=== PATIENT | female | born 1985 | race Caucasian/White ===

== ENCOUNTER → 2018-05-02 09:07 | Outpatient (CLI) | payer OTHER, SELFPAY ==
--- NOTE | 2018-05-02 | DI.RAD.S_ITS ---
PROCEDURE: XR KNEE LT 3V INDICATIONS: LEFT KNEE PAIN TECHNIQUE: 3 views of the knee were acquired. COMPARISON: None. FINDINGS: Bones: No fractures or dislocations. No suspicious bony lesions. Soft tissues: No joint effusion. No suspicious soft tissue calcifications. IMPRESSION: No acute radiographic findings. If there is continued pain, followup exam or additional imaging such as MRI or CT could be performed for further assessment. Dictated by: Jaymie Lomeli M.D. on 05/02/2018 at 10:03 Approved by: Jaymie Lomeli M.D. on 05/02/2018 at 10:04
== END ==
PROVIDERS: PCP Nurse Practitioner Family; Visit Provider Nurse Practitioner Family
DX: M25.562 Pain in left knee (principal)
CPT/HCPCS: 73562

== ENCOUNTER → 2018-05-10 06:21 | Outpatient (CLI) | payer OTHER, SELFPAY ==
--- NOTE | 2018-05-10 | DI.MRI.S_ITS ---
PROCEDURE: MR KNEE LT WO CON INDICATIONS: Sprain of anterior cruciate ligament of left knee. Left knee pain, instability post skiing accident TECHNIQUE: Noncontrast sagittal PD fast spin echo and T2 fast spin echo with fat saturation, sagittal 3-D FLASH with fat saturation; coronal T1 spin echo and PD fast spin echo with fat saturation, and axial PD fast spin echo with fat saturation through the knee. COMPARISON: [facility], CR, XR KNEE LT 3V, 05/02/2018, 9:16. FINDINGS: Image quality: Excellent. Menisci: The medial and lateral menisci demonstrate normal morphology and internal signal. The meniscal root ligaments appear intact. Cruciate ligaments: There is a high-grade, complete or near-complete, sprain of the anterior cruciate ligament proximally with a few intact appearing fibers. There is associated periligamentous edema. The posterior cruciate ligament appears intact. Medial structures: The medial collateral ligament appears intact. The semimembranosus tendon insertions and meniscocapsular junction appear intact. Visualized portions of the pes anserinus tendons appear intact without associated bursal fluid collections. Lateral structures: The lateral collateral ligament, long and short heads of the biceps femoris tendon appear intact. The popliteus tendon appears intact. There is mild edema along the posterolateral aspect of the joint capsule consistent with a mild capsular sprain. Iliotibial band appears normal. Anterior structures: The quadriceps and patellar tendons appear intact. Patellar alignment is normal. No femoral trochlear dysplasia or ventral trochlear prominence. No edema in the infrapatellar fat pad. Bones and cartilage: There is bone marrow edema within the posterior aspect of the lateral tibial plateau consistent with a bone contusion. No discrete fracture identified. There is mild chondral fissuring in the patellofemoral compartment with associated small foci of subchondral edema along the patella. In the medial and lateral compartments, there is mild superficial chondral fraying. Joint space: There is a small joint effusion.. No Dias's cyst. Normal appearing synovial plicae are incidentally noted. IMPRESSION: 1. High grade, complete or near-complete, sprain of the ACL proximally with associated contusion in the posterior lateral tibial plateau. 2. Small joint effusion. 3. Mild chondral degeneration in the patellofemoral compartment. Dictated by: El Rainey M.D. on 05/10/2018 at 8:40 Approved by: El Rainey M.D. on 05/10/2018 at 8:49
== END ==
PROVIDERS: PCP Nurse Practitioner Family; Visit Provider Orthopaedic Surgery
DX: S83.512A Sprain of anterior cruciate ligament of left knee, initial encounter (principal); M25.462 Effusion, left knee
CPT/HCPCS: 73721

== ENCOUNTER → 2019-12-23 14:02 | Outpatient (CLI) | payer OTHER, SELFPAY ==
[2019-12-23 16:02] LABS: HCG Quantitative /Beta subunit 18072 mIU/mL
== END ==
PROVIDERS: Referring Provider Obstetrics & Gynecology; Visit Provider Obstetrics & Gynecology
DX: O20.9 Hemorrhage in early pregnancy, unspecified (principal)
CPT/HCPCS: 36415; 84702

== ENCOUNTER → 2019-12-24 10:14 | Outpatient (CLI) | payer OTHER, SELFPAY ==
[2019-12-24 12:01] LABS: HCG Quantitative /Beta subunit 19962 mIU/mL
== END ==
PROVIDERS: PCP Specialist; Referring Provider Obstetrics & Gynecology; Visit Provider Obstetrics & Gynecology
DX: O20.9 Hemorrhage in early pregnancy, unspecified (principal)
CPT/HCPCS: 36415; 84702

== ENCOUNTER → 2019-12-30 11:49 | Outpatient (CLI) | payer OTHER, SELFPAY ==
[2019-12-30 16:30] LABS: HCG Quantitative /Beta subunit 24059 mIU/mL
== END ==
PROVIDERS: PCP Specialist; Referring Provider Specialist; Visit Provider Specialist
DX: O20.9 Hemorrhage in early pregnancy, unspecified (principal)
CPT/HCPCS: 36415; 84702

== ENCOUNTER → 2020-05-05 08:13 | Outpatient (CLI) | payer OTHER, SELFPAY | PROVIDERS: Referring Provider Obstetrics & Gynecology; Visit Provider Obstetrics & Gynecology | DX: N91.2 Amenorrhea, unspecified (principal); Z87.59 Personal history of other complications of pregnancy, childbirth and the puerperium | CPT/HCPCS: 36415; 84702 ==

== ENCOUNTER → 2020-05-07 07:37 | Outpatient (CLI) | payer OTHER, SELFPAY ==
[2020-05-07 09:38] LABS: HCG Quantitative /Beta subunit 1607.3 mIU/mL
== END ==
PROVIDERS: Referring Provider Obstetrics & Gynecology; Visit Provider Obstetrics & Gynecology
DX: N91.2 Amenorrhea, unspecified (principal); Z87.59 Personal history of other complications of pregnancy, childbirth and the puerperium
CPT/HCPCS: 36415; 84702

== ENCOUNTER → 2020-08-30 09:17 | Outpatient (CLI) | payer OTHER, SELFPAY ==
--- NOTE | 2020-08-30 09:17 | DI.US.S_ITS ---
PROCEDURE: US OB >= 14 WEEKS FETUS INDICATIONS: 20 WEEK ANATOMICAL SURVEY OUTSIDE/PRIOR DATING DATA: Last menstrual period (LMP): 04/01/20 LMP-based estimated date of delivery ([facility]): 01/06/21 First dating scan (date and location): 08/30/20 Estimated date of delivery ([facility]) from first dating scan: 01/10/21 TECHNIQUE: Real-time scanning was performed of the fetus, with image documentation and biometric measurements. Endovaginal scanning: Not performed COMPARISON: None. FINDINGS: General: A single living intrauterine gestation is present. Presentation: Breech. Placenta: Placental position is anterior , without previa. Amniotic fluid index: 11.0 cm, normal range is 5-24 cm. heart rate: 147 beats per minute. Maternal cervical canal: 4.0 cm long. Normal lower limit is 2.5 cm. biometrics: Biparietal diameter: 4.9 cm, 20 weeks 5 days Head circumference: 18.2 cm, 20 weeks 4 days (8th percentile) Abdominal circumference: 16.3 cm, 21 weeks 3 days Femur length: 3.6 cm, 21 weeks 2 days Estimated gestational age from initial scan: not applicable. Composite gestational age from present scan: 21 weeks 0 days Estimated weight and percentile: 411 g, 29th percentile Measurement variability for biometric dating: +/- 7 days from 14 weeks to 15 weeks 6 days gestation, +/- 10 days from 16 weeks to 21 weeks 6 days gestation, +/- 2 weeks from 22 weeks to 27 weeks 6 days gestation, +/- 3 weeks for 28 weeks gestation or later. weight reference: 4500 g or EFW >90/95% is considered macrosomia or large for gestational age. EFW <10% is small for gestational age. EFW 5% or less is considered intra-uterine growth restriction. Anatomic survey: Neuro: Ventricles are non-dilated at less than 10 mm. Cisterna magna is normal at 3-11 mm. Cerebellum is normal in size and morphology. Nuchal skin fold: Normal at less than 6 mm between 14-21 weeks gestational age. Face: Nose and lips, facial profile are normal. Spine: No evidence for spina bifida. Heart: 4-chambered heart is present, with normal ventricular outflow tracts. Diaphragm: Diaphragm is intact. Stomach: Left-sided stomach is present. Kidneys: No hydronephrosis. Normal is less than 5 mm in 2nd trimester, less than 7 mm in 3rd trimester. Cord: 3-vessel cord has orthotopic insertion. Bladder: Normal in size. Extremities: All 4 extremities identified. IMPRESSION: Single living intrauterine fetus in breech presentation. Expected interval growth Normal anatomic survey Dictated by: Jadon Rowley M.D. on 08/30/2020 at 13:03 Approved by: Jadon Rowley M.D. on 08/30/2020 at 13:07
== END ==
PROVIDERS: Referring Provider Nurse Practitioner Obstetrics & Gynecology; Visit Provider Nurse Practitioner Obstetrics & Gynecology
DX: Z34.92 Encounter for supervision of normal pregnancy, unspecified, second trimester (principal); Z3A.21 21 weeks gestation of pregnancy
CPT/HCPCS: 76811

== ENCOUNTER → 2020-12-11 12:00 | Outpatient (ROUT) | payer OTHER, SELFPAY ==
[2020-12-12 10:19] LABS: Strep Grp B PCR NEG for Grp B Strep
== END ==
PROVIDERS: Visit Provider Nurse Practitioner Obstetrics & Gynecology
DX: Z34.90 Encounter for supervision of normal pregnancy, unspecified, unspecified trimester (principal); Z36.85 Encounter for antenatal screening for Streptococcus B; Z3A.36 36 weeks gestation of pregnancy
CPT/HCPCS: 87653

== ENCOUNTER 2021-01-13 04:20 | Inpatient (IN) | payer OTHER, SELFPAY ==
--- NOTE | 2021-01-13 04:33 | P.HPOB_ITS ---
OB HPI Date/Time Date of admission: 01/13/21 Date Patient Seen: 01/13/21 Time Patient Seen: 04:33 History of Present Condition Chief complaint: MATERNITY : 2 Para: 0 Estimated Date of Delivery: 01/06/21 Estimated Gestational Age (weeks): 41 Narrative: Haydee Fuentes is a 35 year old female @ 41wks by LMP and early US. Contractions started last night, slowly progressing in frequency and intensity. Just started breathing through contractions regularly. Lots of FM and small amounts of bloody show. No LOF. Uncomplicated PN care w/ CNM. , Deep, is present and supportive. Desires low intervention . Scheduled for 41wk IOL today and happy to be laboring spontaneously. History of Present care: good care, initiated at week # (9), number of visits (12) and pounds weight gain (29) Dating criteria: LMP confirmed by 1st trimester US Ultrasounds: normal mid trimester US Obstetrical complications: none Medical complications: none Preadmission Labs Blood type: A (+) positive -: Antibody screen: negative, GBS status: negative, HBsAG: negative, HIV: negative and RPR/VDLR: negative -: Chlamydia screen: not detected and Gonorrhea screen: not detected -: Rubella: immune HCT: 32.8 HCAB: negative Cell-free DNA: negative, male 1 hr GTT: 107 Prior (ies) History: 01/01/20: SAB @ 7wks Evaluation Evaluation Baseline heart rate: 140 Variability: Moderate (11-25) monitor accelerations: Present Monitor Decelerations: Absent Contraction Frequency (minutes): 2 Uterine Contraction Intensity: Moderate Status: Category l Cervical dilation (cm): 4 Cervical effacement (%): 90 station: -3 [facility] Medical History Abnormal Pap smear of cervix Chicken pox (~1990) Human papilloma virus (~2010) Surgical History Anesthesia H/O LEEP (~2010) History of left knee surgery (~07/18/18) History of tonsillectomy (~2008) Family History Grandmother Leukemia Grandfather Alzheimer's disease Social History Smoking Status: Never smoker Meds Home Medications and Allergies Home Medications Medication Instructions Recorded Confirmed Type prenat.vits,yuri,[id number] 1 tab PO DAILY 01/01/20 01/13/21 History Allergies Allergy/AdvReac Type Severity Reaction Status Date / Time No Known Drug Allergies Allergy Verified 01/13/21 05:08 Review of Systems Review of Systems ROS: Yes unobtainable due to mental condition Exam Vital Signs (past 8 hours): BP 111/74mmHg, HR 81bpm, T 36.6C Temporal Resp Auscultation: clear to auscultation bilaterally Cardio Rate: regular rate Rhythm: regular rhythm Heart Sounds: S1 normal and S2 normal Presentation: vertex Objective Labs Result Diagrams: 01/13/21 07:25 Assessment and Plan Assessment and Plan Assessment and Plan narrative: A: Term nullipara Approaching active labor Mild anemia No inidcation for GBS prophylaxis Cat I FHR P: Admit, routine orders. May switch to IA after 20 minutes of Cat I FHR. Labor support, PRN. Reassess in 4 hours or sooner, PRN.
[2021-01-13 04:54] VITALS: BP 114/72
[2021-01-13 05:40] LABS: COVID19 - ADMIT (NP swab/PCR) Negative (Negative)
[2021-01-13] MEDS: CALCIUM CARBONATE 500 MG TAB 1000 MG PO (06:22)
[2021-01-13 07:37] LABS: Add Manual Diff / Slide Review NO; Basophils Absolute Auto 0 /uL (0-100); Basophils Percent Auto 0.2 % (0-2); Eosinophils Absolute Auto 0 /uL (0-450); Eosinophils Percent Auto 0.2 % (2-4); Hematocrit 40.2 % (36-46); Hemoglobin 13.7 g/dL (12.0-16.0); Lymphocytes Absolute Auto 800 /uL (1100-4500); Lymphocytes Percent Auto 4.5 % (25-40); Mean Corpuscular HGB Conc 34.1 % (30-36); Mean Corpuscular Hemoglobin 31.2 PG (26-34); Mean Corpuscular Volume 91.7 fL (80-100); Monocytes Absolute Auto 800 /uL (0-900); Monocytes Percent Auto 4.6 % (3-14); Neutrophils Absolute Auto 16000 /uL (1500-7000); Neutrophils Percent Auto 90.5 % (50-75); Platelet Count 146 X10^3/uL (150-400); Red Blood Cell Count 4.39 X10^6/uL (4.0-5.2); Red Cell Distribution Width 13.1 % (11.6-14.8); White Blood Cell Count 17.7 X10^3/uL (4.5-11.0)
[2021-01-13] MEDS: LACTATED RINGERS 1,000 ML 100 ML IV ×2 (09:45→10:45)
--- NOTE | 2021-01-13 11:29 | P.PCN_ITS ---
Regional Block Pre-procedure Procedure: Continuous Lumbar Epidural for L&D Attending OB provider: Araseli Gilliam PMH/ROS narrative: term labor, no complications ASA Class: II Labs: Hct 40.2 % (36-46) 01/13/21 07:25 Plt Count 146 X10^3/uL (150-400) L 01/13/21 07:25 Medications: Current Medications Generic Name Dose Route Start Last Admin Trade Name Freq PRN Reason Stop Dose Admin Calcium Carbonate 1,000 mg 01/13/21 04:31 01/13/21 06:22 Calcium Carbonate 500 Mg Tab PO 1,000 mg Q2HR PRN Administration Dyspepsia Carboprost Tromethamine 250 mcg 01/13/21 04:31 Carboprost 250 Mcg/Ml Ampul IM Q90M PRN Bleeding Diphenhydramine HCl 25 mg 01/13/21 09:58 Diphenhydramine 50 Mg/Ml Vial IV Q10M PRN Pruritis Fentanyl 100 mcg 01/13/21 04:31 Fentanyl 100 Mcg/2 Ml Inj IV Q1H PRN Pain, Severe (7-10) Lactated Ringer's 1,000 mls @ 100 mls/hr 01/13/21 04:45 01/13/21 10:45 Lactated Ringers IV 100 mls/hr CONT AWA Administration Oxytocin/Lactated Ringer's 30 unit in 500 mls @ 200 mls/hr 01/13/21 04:31 Oxytocin Premix IV CONT PRN Bleeding Protocol Tranexamic Acid 1,000 mg/ 100 mls @ 200 mls/hr 01/13/21 04:31 Sodium Chloride IV NOW PRN Bleeding FENT 2MCG/ML BUPIV 0.125% EPI 200 mcg in 100 mls @ 6 mls/hr 01/13/21 10:00 Fentanyl/Bupiv/Ns 2mcg/Ml - 0.125% EPIDURAL CONT AWA Methylergonovine Maleate 0.2 mg 01/13/21 04:31 Methylergonovine 0.2 Mg Tablet PO Q6HR PRN Heavy Bleeding Methylergonovine Maleate 0.2 mg 01/13/21 04:31 Methylergonovine 0.2 Mg/Ml Vial IM NOW PRN Bleeding Misoprostol 800 mcg 01/13/21 04:31 Misoprostol 200 Mcg Tablet NE NOW PRN Bleeding Misoprostol 1,000 mcg 01/13/21 04:31 Misoprostol 200 Mcg Tablet NE NOW PRN Bleeding Misoprostol 400 mcg 01/13/21 04:31 Misoprostol 200 Mcg Tablet SL NOW PRN Bleeding Nalbuphine HCl 2.5 mg 01/13/21 09:58 Nalbuphine 20 Mg/Ml Ampul IV Q10M PRN Pruritis Ondansetron HCl 4 mg 01/13/21 04:31 Ondansetron 4 Mg/2 Ml Inj IV Q4HR PRN Nausea And Vomiting Oxytocin 10 unit 01/13/21 04:31 Oxytocin 10 Unit/Ml Vial IM NOW PRN Bleeding Allergies: Allergies Allergy/AdvReac Type Severity Reaction Status Date / Time No Known Drug Allergies Allergy Verified 01/13/21 05:08 Procedure Insertion date: 01/13/21 Insertion time: 11:05 Prep/Local: betadine x3 and 1% lidocaine Interspace: L2-3 Needle: 18 gauge Digital [place] (CSE: 27g Pencan through [place], clear CSF, 1mL 0.25% bupiv) Loss of resistance with: saline SHWETHA at (cm): 4 Catheter placed at SKIN (cm): 9 Catheter in SPACE (cm): 5 Insertion: No CSF, No Blood, No Paresthesia with insertion, No Paresthesia with injection and No Test dose reaction Initial Medications TEST DOSE time: 11:07 TEST DOSE: 1.5% lidocaine with epinephrine 1:200k (mL): 3 BOLUS DOSE time: 11:18 BOLUS DOSE (mL): 3 BOLUS DOSE med: other (infusate) Infusion INFUSION: 0.125% bupivacaine and with fentanyl 2 mcg/mL Initial rate (mL/hr): 8 Subsequent interventions: 15:10 5mg ephedrine IV, mildly depressed BP with decreased variability and maternal nausea 17:00 RL quadrant window, clinician bolus (0.125% bupiv with fentanyl 2mcg/mL) of 6mL Post-procedure Anesthesia time START: 10:50 Anesthesia time END: 21:10 Post-procedure Anesthesia Assessment: Yes CV function: HR/BP stable, Yes Resp function: RR/sat/airway adequate, Yes Mental status appropriate and No Anesthesia complications
--- NOTE | 2021-01-13 11:32 | PM.OBPNLAB ---
Date/Time Date Patient Seen: 01/13/21 Time Patient Seen: 11:32 Pain Control Pain control: epidural Comments: Abdoul labored well, changing positions frequently. While laboring in the tub, Abdoul made the decision to receive an epidural. Epidural now in place with complete pain relief. VS: BP 99/68mmHg, HR 93bpm, T 36.7C Temporal. Pelvic Exam Dilation (cm): 6 Effacement (%): 100 station: -2 Amniotic membrane status: Leaking (clear) Contractions Monitor mode: External Pitocin rate (mU/min): 0 Contraction frequency (min): 3 Contraction duration (min): 1 Contraction pattern: Irregular Contraction phase: Resting Contraction intensity: Moderate Status status: Category ll Heart Rate Baseline: 135 Monitor Accelerations: Absent Monitor Decelerations: Variable Monitor Variability: Moderate Comments: single late deceleration Assessment and Plan Assessment: active labor Plan: continuous present management Comments: reassess in 4hours or sooner, PRN
--- NOTE | 2021-01-13 13:12 | PM.OBPNLAB ---
Date/Time Date Patient Seen: 01/13/21 Time Patient Seen: 13:10 Pain Control Pain control: epidural Comments: Abdoul is resting in bed with epidural providing good pain relief during contractions. Feeling a little pressure with some but no pain. Supportive partner remains at bedside. BP: 99/58 mmHg, HR: 69bpm, RR 16/min, T 36.7C Temporal Pelvic Exam Dilation (cm): 7 Effacement (%): 100 station: -2 Amniotic membrane status: Leaking (clear) Comments: SVE per RN due to FHR decelerations, BBOW/forebag palpated Contractions Monitor mode: External Contraction frequency (min): 4 Contraction pattern: Irregular Contraction phase: Resting Contraction intensity: Moderate Status status: Category ll Heart Rate Baseline: 145 Monitor Accelerations: Present Monitor Decelerations: Late Monitor Variability: Moderate Comments: Recurrent late decelerations noted by RN on EFM. Resolved after several position changes and fluid bolus. Variability remains moderate and accelerations present. Abdoul is currently resting on left side, no decelerations noted at this time. Assessment and Plan Assessment: active labor Plan: continuous present management Comments: Will consider AROM of forebag if contractions continue to space and decelerations do not continue. Reassess in 2 hrs or sooner PRN.
--- NOTE | 2021-01-13 14:30 | PM.OBPNLAB ---
Date/Time Date Patient Seen: 01/13/21 Time Patient Seen: 14:31 Pain Control Pain control: epidural Comments: Pt had nause and vomiting w/ FHR deceleration despite low Nguyen's position and IVFB. Was treated with ephedrine 5mg by for symptomatic hypotension. Epidural continuous dose was also decrease and patient remains comfortable. VS: BP 106/68mmHg, HHR 88bpm, T 37.0C Temporal Pelvic Exam Dilation (cm): 7 Effacement (%): 100 station: -2 Amniotic membrane status: Leaking (clear) Comments: AROM forebag for copious clear fluid OP Position noted Contractions Monitor mode: External Pitocin rate (mU/min): 0 Contraction frequency (min): 4 Contraction duration (min): 1 Contraction pattern: Irregular Contraction phase: Resting Contraction intensity: Moderate Status status: Category ll Heart Rate Baseline: 138 Monitor Accelerations: Absent Monitor Decelerations: Early Monitor Variability: Minimal Assessment and Plan Assessment: active labor Plan: continuous present management and begin patient augmentation Comments: Encourage position changes w/ peanut ball. Will consider pitocin augmentation if no change at next check. Reassess in 2hours or sooner, PRN.
[2021-01-13] MEDS: OXYTOCIN PREMIX 30 UNIT/500 ML PLAST..BAG IV (16:35)
--- NOTE | 2021-01-13 16:42 | PM.OBPNLAB ---
Date/Time Date Patient Seen: 01/13/21 Time Patient Seen: 16:42 Pain Control Pain control: epidural Comments: Has had 2 emesis episodes over the last 2 hours with a prolonged deceleration with each. FHR and nausea resolve quickly. Otherwise, laboring comfortably with an epidural and now agreeable to pitocin augmentation. VS: BP 111/72mmHg, HR 87bpm, T 37.1C Temporal Pelvic Exam Dilation (cm): 8 Effacement (%): 100 station: -1 Amniotic membrane status: Leaking (clear) Contractions Monitor mode: External Contraction frequency (min): 4 Contraction pattern: Irregular Contraction phase: Resting Contraction intensity: Moderate Status status: Category ll Heart Rate Baseline: 135 Monitor Accelerations: Present Monitor Decelerations: Early and Variable Monitor Variability: Moderate Comments: has has i of minimal variability Assessment and Plan Assessment: active labor Plan: begin patient augmentation (begin pitocin) Comments: Reassess in 4 hours or sooner, PRN.
[2021-01-13] MEDS: ONDANSETRON 4 MG/2 ML INJ IV (18:54)
[2021-01-13] MEDS: FENT 2MCG/ML BUPIV 0.125% EPI 200 MCG/100 ML PLAST..BAG 6 MCG EPIDURAL (19:16)
--- NOTE | 2021-01-13 21:15 | PM.OBPRVD ---
Labor & Delivery Delivery date: 01/13/21 Intrapartal Events: Deceleration Cervical ripening method: none Induction method: none Delivery augmentation: pitocin Delivery monitor: external FHT and external uterine Route of delivery: Episiotomy description: None L&D Laceration Description: Vaginal - 1st Degree Delivery repair: chromic (3.0) Estimated blood loss (mL): 300 Anesthesia Type: Epidural Narrative: Abdoul progressed to complete and began feeling increased pressure with contractions. She pushed in a variety of positions, semi fowlers, using squat bar, and lateral. Variable decelerations were noted on EFM with contractions that resolved. Variability remained moderate throughout second stage. Abdoul delivered a vigerous baby boy at 2100. The head and shoulders delivered easily. Active management of the third stage was implemented via IV pitocin. Baby was placed on mom's abdomen for drying. Apgars were 8 and 9. Cord was double clamped and cut by FOB. Cord blood was collected. [place] placenta was delivered spontaneously and intact. A first degree laceration was noted and repaired with 3.0 chromic. QBL was 300. Baby remained skin to skin with mom. [place] Baby 1: gender: Male Presentation: vertex Position: Left Occiput Transverse Placenta delivery description: Spontaneous Cord Vessel Description: 3 Vessels score (1 min): 8 score (5 min): 9 weight: 4.034 kg Plan for aftercare: Routine care
[2021-01-13] MEDS: DERMOPLAST SPRAY 20% 60 ML 1 SPRAY TOP (22:35)
[2021-01-13] MEDS: KETOROLAC 30 MG/ML VIAL IV (22:35)
[2021-01-14] MEDS: IBUPROFEN 600 MG TABLET PO ×2 (04:14→17:29)
[2021-01-14] MEDS: DOCUSATE 100 MG CAPSULE PO (09:18)
[2021-01-14 17:45] VITALS: BP 100/69; PULSE 72; RESP 16; TEMP 36.4
--- NOTE | 2021-01-14 18:07 | PM.OBDS.1 ---
Discharge Providers Provider Date of admission: 01/13/21 04:20 Discharge Date: 01/14/21 Primary care physician: Doctor Juan MD Consults: 01/14/21 21:14 Consult to Service Consultant Routine Comment: Discharge provider: Araseli Gilliam CNM Summary Hospital Course Date Patient Seen: 01/14/21 Time Patient Seen: 18:08 Diagnoses: o70 Hospital Course: PPD1: Abdoul is voiding, ambulating and independently. She is tolerating a general diet and pain is well controlled with PO medication. Bleeding is light, without clots. She and Deep feel ready for discharge to home with Sami this evening. Peripartum Data Delivery Method: Natural Vaginal Laceration Description: Vaginal - 1st Degree Episiotomy description: None complications: none [place] 1: Gender: Male Discharge Diagnosis (1) First degree perineal laceration during delivery: Start Date: 01/13/21 Start Time: 21:00 Status: Acute Status at Discharge Cognitive/behavioral status at discharge: oriented and calm Functional status at discharge: independent ambulation Overall status at discharge: patient is progressing back to baseline Time Spent with Patient Time attestation: Total time spent providing and/or coordinating discharge services: Objective Labs Result Diagrams: 01/13/21 07:25 Exam Vital Signs (past 8 hours): BP 95/58, HR 72bpm, RR 16/min, T 98.8F temporal Other: Fundus firm @ u-1, lochia light, no clots. Perineum intact. Discharge Plan Discharge Plan Patient Disposition: Home Discharge orders & Medications Prescriptions: New ibuprofen 600 mg Tablet 600 mg PO Q6HR PRN (Reason: Pain, Mild (1-3)) 14 Days Qty: 60 RF: 1 Continued prenat.vits,yuri,[id number] Tablet 1 tab PO DAILY RF: 0 Follow up/Referrals: Araseli Gilliam CNM [[employer]iance [employer]] - (Follow-up by Telehealth 01/26/21 @ 1035 Follow-up in office 02/25/21 @ 9302) Doctor Martinez MD [Primary Care Provider] - Diet/Activity/Treatments Diet: Diet as Tolerated and Regular Activity: pelvic rest x 6 weeks Skin/Wound/Dressing Care Report to your healthcare provider any signs of infection, such as:: chills, fever, increased pain, unusual drainage and unusual redness Visit Report/Discharge Packet Instructions: Depression Discharge Data Primary Care Provider: Miscellaneous,Doctor
== END 2021-01-14 20:45 | disposition home or self-care (01) | DRG 807 ==
PROVIDERS: Admitting Provider Nurse Practitioner Obstetrics & Gynecology; Referring Provider Nurse Practitioner Obstetrics & Gynecology; Visit Provider Nurse Practitioner Obstetrics & Gynecology
DX: O48.0 Post-term pregnancy (principal); Z37.0 Single live birth; O70.0 First degree perineal laceration during delivery; Z3A.41 41 weeks gestation of pregnancy
CPT/HCPCS: 01967; 36415; 59050; 85025; 86850; 86900; 86901; 87635; C9803; G0379; J1885; J2405; J2590